=== PATIENT | male | born 1950 | race Asian ===

== ENCOUNTER 2020-07-28 20:55 | Emergency (ER) | payer MEDICARE ==
[~2020-07-28] VITALS: Ht 168.9 cm; Wt 63.6 kg
[2020-07-28] MEDS ORDERED: CARV12.530 PO (21:06)
[2020-07-28] MEDS ORDERED: ROSU20TA73 PO (21:06)
[2020-07-28] MEDS ORDERED: AMLO5TAB66 PO (21:06)
[2020-07-28] MEDS ORDERED: METF-446 PO (21:06)
[2020-07-28] MEDS ORDERED: INSU300I SQ (21:06)
[2020-07-28] MEDS ORDERED: FENO145T26 PO (21:06)
[2020-07-28] MEDS ORDERED: VALS160T31 PO (21:06)
[2020-07-28 23:09] LABS: BASOPHILS % (AUTO) 0.8 % (0.0-2.0); EOSINOPHILS % (AUTO) 6.7 % (1.0-6.0); HEMATOCRIT 43.7 % (41-53); HEMOGLOBIN 14.5 g/dL (13.5-17.5); LYMPHOCYTES # (AUTO) 1.4 K/uL (1.0-4.8); LYMPHOCYTES % (AUTO) 24.8 % (22.0-44.0); MEAN CORPUSCULAR HEMOGLOBIN 28.5 pg (26.0-34.0); MEAN CORPUSCULAR HGB CONC 33.2 G/dL (31.0-37.0); MEAN CORPUSCULAR VOLUME 86 fL (80-100); MONOCYTES # (AUTO) 0.5 K/uL (0.1-1.0); MONOCYTES % (AUTO) 8.6 % (2.0-9.0); NEUTROPHILS # (AUTO) 3.4 K/uL (1.8-7.7); NEUTROPHILS % (AUTO) 59.1 % (40.0-70.0); PLATELET COUNT (AUTO) 329 K/uL (150-450); RED BLOOD CELL COUNT(AUTO) 5.08 MIL/uL (4.50-5.90); RED CELL DISTRIBUTION WIDTH 13.4 % (11.5-14.5)
[2020-07-28 23:17] LABS: INR 0.9 (0.9-1.1)
[2020-07-28 23:22] LABS: CALCIUM, TOTAL 9.6 mg/dL (8.8-10.5); CREATININE 1.29 mg/dL (0.60-1.30); POTASSIUM 4.6 mmol/L (3.5-5.1)
[2020-07-28] MEDS ORDERED: AmLODIPine BESYLATE 5 MG TABLET PO ONE (23:45)
[2020-07-28 23:52] LABS: ALBUMIN 4.8 g/dL (3.4-5.0); BILIRUBIN,TOTAL 0.4 mg/dL (0.1-1.0); TOTAL PROTEIN, SERUM 9.2 g/dL (6.4-8.2)
[2020-07-29 00:18] LABS: APPEARANCE,URINE CLEAR (CLEAR); BILIRUBIN,URINE NEGATIVE (NEGATIVE); GLUCOSE, URINE (UA) >=1000 mg/dL (NEGATIVE); KETONES,URINE NEGATIVE (NEGATIVE); LEUKOCYTE ESTERASE ,URINE NEGATIVE (NEGATIVE); NITRATE,URINE NEGATIVE (NEGATIVE); OCCULT BLOOD,URINE NEGATIVE (NEGATIVE); PROTEIN,URINE TRACE (NEGATIVE)
[2020-07-29 00:20] LABS: BACTERIA,URINE None Seen /HPF (None Seen); RBC,URINE None Seen /HPF (0-2); SQUAMOUS EPITHELIAL CELL,UR None Seen /LPF (None Seen); WBC,URINE None Seen /HPF (0-5)
[2020-07-29 00:29] VITALS: BP 152/72
== END 2020-07-29 00:53 | disposition home or self-care (01) ==
LOC: EMS 20:59
DX: I10 Essential (primary) hypertension (principal); R51.9 Headache, unspecified; E11.9 Type 2 diabetes mellitus without complications; E78.00 Pure hypercholesterolemia, unspecified; Z79.84 Long term (current) use of oral hypoglycemic drugs; Z88.6 Allergy status to analgesic agent
CPT/HCPCS: 70450; 71045; 80053; 81001; 82550; 82962; 83880; 84484; 85025; 85610; 85730; 93005; 99285; 36415-L1; 36415-TC

== ENCOUNTER 2025-01-20 15:58 | Inpatient (IN) | payer MEDICARE ==
[~2025-01-20] VITALS: Ht 167.6 cm; Wt 59.8 kg
[~2025-01-20 15:58] MED LIST: AMLO5TAB66 PO; CARV12.530 PO; EMPA10TA3 PO; FENO145T26 PO; FINE10TA PO; INSU300I SQ; METF-446 PO; ROSU20TA98 PO; VALS160T31 PO
[2025-01-20] MEDS ORDERED: CHOL500043 PO (16:07)
[2025-01-20] MEDS ORDERED: MELA3TAB89 PO (16:07)
[2025-01-20] MEDS ORDERED: ASPI-1450 PO (16:07)
[2025-01-20] MEDS ORDERED: OMEG-287 PO (16:07)
[2025-01-20] MEDS ORDERED: 0.9% SODIUM CHLORIDE 10 ML SYRINGE IVP PRN (16:30)
[2025-01-20 17:16] LABS: COVID AG,FIA SOURCE NASAL SWAB
[2025-01-20 17:30] LABS: PLATELET COUNT (AUTO) 193 K/uL (150-450); RED BLOOD CELL COUNT(AUTO) 4.16 MIL/uL (4.50-5.90); RED CELL DISTRIBUTION WIDTH 15.1 % (11.5-14.5); WHITE BLOOD COUNT (AUTO) 7.1 K/uL (4.5-11.0)
[2025-01-20] MEDS: ACETAMINOPHEN 1000 MG/ISO-OSM 100 ML IV ONE (17:41)
[2025-01-20 17:43] LABS: INFLUENZA TYPE A NEGATIVE FOR TYPE A (NEGATIVE); INFLUENZA TYPE B NEGATIVE FOR TYPE B (NEGATIVE); SARS-COV2 (COVID) ANTIGEN,FIA Negative (Negative)
[2025-01-20 17:43] LABS: ASPARTATE AMINOTRANSFERASE 39 U/L (15-37); CREATINE KINASE, TOTAL ONLY 54 U/L (39-308); TOTAL PROTEIN, SERUM 8.3 g/dL (6.4-8.2)
[2025-01-20 17:46] LABS: LACTIC ACID 1.5 mmol/L (0.4-2.0)
[2025-01-20 17:49] LABS: CALCIUM, TOTAL 9.3 mg/dL (8.8-10.5); CREATININE 2.05 mg/dL (0.60-1.30); GLOMERULAR FILTR. RATE CALC 32 mL/min (>60); GLUCOSE,RANDOM 118 mg/dL (70-110); SODIUM SERUM 135 mmol/L (136-145); TROPONIN I-HIGH SENSITIVITY 49 ng/L (<76); UREA NITROGEN, BLOOD 47 mg/dL (7-18)
[2025-01-20 18:40] LABS: APPEARANCE,URINE CLEAR (CLEAR); GLUCOSE, URINE (UA) >=1000 mg/dL (NEGATIVE); LEUKOCYTE ESTERASE ,URINE NEGATIVE (NEGATIVE); NITRATE,URINE NEGATIVE (NEGATIVE); OCCULT BLOOD,URINE TRACE (NEGATIVE); SPECIFIC GRAVITIY, URINE 1.020 (1.003-1.030)
[2025-01-20] MEDS: PIPERACILLIN SODIUM/TAZOBACTAM 4.5 GM in DEXTROSE 5%-WATER 100 ML IV ONE (18:49)
[2025-01-20 18:59] LABS: SQUAMOUS EPITHELIAL CELL,UR Rare /LPF (None Seen)
[2025-01-20] MEDS ORDERED: PIPERACILLIN/TAZO 3.375 GM/D5W 50 ML IV SCH (22:45)
[2025-01-20] MEDS ORDERED: ONDANSETRON HCL 4 MG/2 ML VIAL IVP PRN (22:45)
[2025-01-20] MEDS: PIPERACILLIN SODIUM/TAZOBACTAM 2.25 GM in DEXTROSE 5%-WATER 50 ML IV SCH (23:47)
[2025-01-20] MEDS: MELATONIN 3 MG TABLET PO SCH (23:47)
[2025-01-21 01:00] VITALS: BP 117/59; PULSE 88; RESP 18; TEMP 97.7; O2SAT 98
[2025-01-21 04:30] VITALS: BP 106/66; PULSE 95; RESP 19; TEMP 99.3; O2SAT 97
[2025-01-21] MEDS ORDERED: SODIUM CHLORIDE 0.9% 250 ML IV ONE (06:11)
[2025-01-21] MEDS: ACETAMINOPHEN 325 MG TABLET PO PRN (06:16)
[2025-01-21 08:43] VITALS: BP 106/57; PULSE 76; RESP 17; TEMP 98.1; O2SAT 96
[2025-01-21] MEDS: VALSARTAN 160 MG TABLET PO SCH (09:00)
[2025-01-21] MEDS: POLYETHYLENE GLYCOL 3350 17 GM PACKET PO SCH (09:00)
[2025-01-21] MEDS: ENOXAPARIN SODIUM 40 MG/0.4 ML PF SYRINGE SQ SCH (09:30)
[2025-01-21] MEDS: OMEGA-3/DHA/EPA/FISH OIL 500 MG CAPSULE PO SCH (09:32)
[2025-01-21] MEDS: ASPIRIN 81 MG CHEWABLE TABLET PO SCH (09:32)
[2025-01-21] MEDS: EMPAGLIFLOZIN 10 MG TABLET PO SCH (09:32)
[2025-01-21] MEDS: ROSUVASTATIN CALCIUM 20 MG TABLET PO SCH (09:35)
[2025-01-21] MEDS: FENOFIBRATE 48 MG TABLET PO SCH (09:35)
[2025-01-21 12:32] VITALS: BP 103/58; PULSE 74; RESP 17; TEMP 98.6; O2SAT 98
[2025-01-21 16:33] VITALS: BP 106/69; PULSE 78; RESP 19; TEMP 97.9; O2SAT 98
[2025-01-21] MEDS: CLOPIDOGREL BISULFATE 75 MG TABLET PO SCH (18:11)
[2025-01-21 19:32] VITALS: BP 123/63; PULSE 81; RESP 19; TEMP 97.5; O2SAT 99
[2025-01-21] MEDS: INSULIN GLARGINE,HUM.REC.ANLOG 100 UNITS/ML SQ SCH (22:02)
[2025-01-22 00:32] VITALS: BP 103/58; PULSE 75; RESP 17; TEMP 97.9; O2SAT 97
[2025-01-22 05:47] VITALS: BP 106/64; PULSE 77; RESP 17; TEMP 97.9; O2SAT 96
[2025-01-22 06:16] LABS: GLUCOMETER DEV NAME(LOC) 5S.2E; GLUCOSE,POINT OF CARE 269 MG/DL (70-110)
[2025-01-22 06:51] LABS: PLATELET COUNT (AUTO) 167 K/uL (150-450); RED BLOOD CELL COUNT(AUTO) 3.62 MIL/uL (4.50-5.90); RED CELL DISTRIBUTION WIDTH 15.0 % (11.5-14.5); WHITE BLOOD COUNT (AUTO) 3.6 K/uL (4.5-11.0)
[2025-01-22 06:54] LABS: CALCIUM, TOTAL 9.1 mg/dL (8.8-10.5); CREATININE 1.89 mg/dL (0.60-1.30); GLOMERULAR FILTR. RATE CALC 35.0 mL/min (>60); GLUCOSE,RANDOM 113.0 mg/dL (70-110); SODIUM SERUM 140.0 mmol/L (136-145); UREA NITROGEN, BLOOD 35.0 mg/dL (7-18)
[2025-01-22 09:13] VITALS: BP 107/61; PULSE 88; RESP 18
[2025-01-22 11:40] LABS: GLUCOMETER DEV NAME(LOC) 5S.1E; GLUCOSE,POINT OF CARE 126 MG/DL (70-110)
[2025-01-22 12:00] VITALS: BP 110/56; PULSE 76; RESP 18; TEMP 98.1; O2SAT 98
[2025-01-22 17:06] VITALS: BP 121/74; PULSE 78; RESP 18; TEMP 98.2; O2SAT 99
[2025-01-22 20:16] VITALS: BP 108/63; PULSE 87; RESP 18; TEMP 97.9; O2SAT 98
[2025-01-22] MEDS: MELATONIN 5 MG TABLET PO SCH (21:49)
[2025-01-23] VITALS (7 sets, daily range): BP systolic 108–150; BP diastolic 60–70; PULSE 66–85; RESP 16–19; TEMP 97.5–98.7; O2SAT 97–100
[2025-01-23 06:50] LABS: PLATELET COUNT (AUTO) 205 K/uL (150-450); RED BLOOD CELL COUNT(AUTO) 3.51 MIL/uL (4.50-5.90); RED CELL DISTRIBUTION WIDTH 14.9 % (11.5-14.5); WHITE BLOOD COUNT (AUTO) 3.2 K/uL (4.5-11.0)
[2025-01-23 07:03] LABS: CALCIUM, TOTAL 9.1 mg/dL (8.8-10.5); CREATININE 1.58 mg/dL (0.60-1.30); GLOMERULAR FILTR. RATE CALC 43.0 mL/min (>60); GLUCOSE,RANDOM 78.0 mg/dL (70-110); SODIUM SERUM 139.0 mmol/L (136-145); UREA NITROGEN, BLOOD 28.0 mg/dL (7-18)
[2025-01-23 07:20] LABS: GLUCOMETER DEV NAME(LOC) 5N.2C; GLUCOSE,POINT OF CARE 261 MG/DL (70-110)
[2025-01-23] MEDS: MELATONIN 5 MG TABLET PO SCH (20:41)
[2025-01-24 05:08] VITALS: BP 137/75; PULSE 73; RESP 17; TEMP 98.2; O2SAT 99
[2025-01-24 07:01] LABS: PLATELET COUNT (AUTO) 218 K/uL (150-450); RED BLOOD CELL COUNT(AUTO) 3.53 MIL/uL (4.50-5.90); RED CELL DISTRIBUTION WIDTH 14.6 % (11.5-14.5); WHITE BLOOD COUNT (AUTO) 2.6 K/uL (4.5-11.0)
[2025-01-24 07:25] LABS: ASPARTATE AMINOTRANSFERASE 37.0 U/L (15-37); CALCIUM, TOTAL 9.0 mg/dL (8.8-10.5); CREATININE 1.63 mg/dL (0.60-1.30); GLOMERULAR FILTR. RATE CALC 42.0 mL/min (>60); GLUCOSE,RANDOM 91.0 mg/dL (70-110); SODIUM SERUM 140.0 mmol/L (136-145); TOTAL PROTEIN, SERUM 7.2 g/dL (6.4-8.2); UREA NITROGEN, BLOOD 28.0 mg/dL (7-18)
[2025-01-24 08:00] VITALS: BP 126/65; PULSE 82; RESP 18; TEMP 97.9; O2SAT 99
[2025-01-24 11:56] VITALS: BP_SYST 138; BP_SYST 99; BP_DIAS 56; BP_DIAS 63; PULSE 83; RESP 18; TEMP 97.7; TEMP 97.9; O2SAT 98
[2025-01-24 12:51] LABS: GLUCOMETER DEV NAME(LOC) 5S.1E; GLUCOSE,POINT OF CARE 238 MG/DL (70-110)
[2025-01-24] MEDS: *CLINICAL-LEVOFLOXACIN ORAL DOSING CLINICAL ONE (13:26)
[2025-01-24] MEDS ORDERED: LEVOFLOXACIN 750 MG/D5% WATER 150 ML IV SCH (14:00)
[2025-01-24] MEDS: LEVOFLOXACIN 750 MG/D5% WATER 150 ML IV SCH (14:37)
[2025-01-24 15:30] VITALS: BP 125/66; PULSE 75; RESP 18; TEMP 98.4; O2SAT 99
[2025-01-24 19:29] VITALS: BP 126/75; PULSE 85; RESP 18; TEMP 98.1; O2SAT 100
[2025-01-25] VITALS: BP 123/63; PULSE 76; RESP 18; TEMP 97.9; O2SAT 99
[2025-01-25 03:01] LABS: GLUCOMETER DEV NAME(LOC) 5S.1E; GLUCOSE,POINT OF CARE 189 MG/DL (70-110)
[2025-01-25 05:44] VITALS: BP 126/74; PULSE 69; RESP 18; TEMP 98.2; O2SAT 97
[2025-01-25 06:58] LABS: PLATELET COUNT (AUTO) 281 K/uL (150-450); RED BLOOD CELL COUNT(AUTO) 3.94 MIL/uL (4.50-5.90); RED CELL DISTRIBUTION WIDTH 14.7 % (11.5-14.5); WHITE BLOOD COUNT (AUTO) 2.4 K/uL (4.5-11.0)
[2025-01-25 07:06] LABS: CALCIUM, TOTAL 9.2 mg/dL (8.8-10.5); CREATININE 1.42 mg/dL (0.60-1.30); GLOMERULAR FILTR. RATE CALC 49.0 mL/min (>60); GLUCOSE,RANDOM 90.0 mg/dL (70-110); SODIUM SERUM 140.0 mmol/L (136-145); UREA NITROGEN, BLOOD 26.0 mg/dL (7-18)
[2025-01-25 07:23] VITALS: BP 141/67; PULSE 75; RESP 18; TEMP 98; O2SAT 98
[2025-01-25 11:08] VITALS: BP 124/66; PULSE 80; RESP 18; TEMP 98.2; O2SAT 97
[2025-01-25 15:47] VITALS: BP 134/73; PULSE 83; RESP 18; TEMP 98.9; O2SAT 100
[2025-01-25 20:29] VITALS: BP 144/79; PULSE 89; RESP 18; TEMP 98.2; O2SAT 96
[2025-01-26] MEDS: ERTAPENEM SODIUM 1 GM in SODIUM CHLORIDE 0.9% 50 ML IV SCH (00:18)
[2025-01-26 00:28] VITALS: BP 130/74; PULSE 79; RESP 18; TEMP 98.2; O2SAT 98
[2025-01-26 04:14] VITALS: BP 130/67; PULSE 70; RESP 19; TEMP 98.1; O2SAT 96
[2025-01-26 06:34] LABS: CALCIUM, TOTAL 8.8 mg/dL (8.8-10.5); CREATININE 1.42 mg/dL (0.60-1.30); GLOMERULAR FILTR. RATE CALC 49.0 mL/min (>60); GLUCOSE,RANDOM 114.0 mg/dL (70-110); SODIUM SERUM 141.0 mmol/L (136-145); UREA NITROGEN, BLOOD 28.0 mg/dL (7-18)
[2025-01-26 06:41] LABS: PLATELET COUNT (AUTO) 249 K/uL (150-450); RED BLOOD CELL COUNT(AUTO) 3.25 MIL/uL (4.50-5.90); RED CELL DISTRIBUTION WIDTH 14.4 % (11.5-14.5); WHITE BLOOD COUNT (AUTO) 2.5 K/uL (4.5-11.0)
[2025-01-26 07:20] VITALS: BP 127/69; PULSE 90; RESP 18; TEMP 97.6; O2SAT 98
[2025-01-26 11:15] VITALS: BP 110/66; PULSE 69; RESP 18; TEMP 97.7; O2SAT 98
[2025-01-26 11:25] LABS: GLUCOMETER DEV NAME(LOC) 5S.1E; GLUCOSE,POINT OF CARE 228 MG/DL (70-110)
[2025-01-26 16:05] VITALS: BP 129/73; PULSE 75; RESP 17; TEMP 98; O2SAT 98
[2025-01-26 20:03] VITALS: BP 152/76; PULSE 85; RESP 18; TEMP 97.3; O2SAT 98
[2025-01-27 00:22] VITALS: BP 125/57; PULSE 71; RESP 18; TEMP 98.2; O2SAT 97
[2025-01-27 04:19] VITALS: BP 128/60; PULSE 72; RESP 18; TEMP 98.1; O2SAT 96
[2025-01-27 06:21] LABS: GLUCOSE,POINT OF CARE 207 MG/DL (70-110)
[2025-01-27 06:38] LABS: PLATELET COUNT (AUTO) 284 K/uL (150-450); RED BLOOD CELL COUNT(AUTO) 3.33 MIL/uL (4.50-5.90); RED CELL DISTRIBUTION WIDTH 14.8 % (11.5-14.5); WHITE BLOOD COUNT (AUTO) 2.6 K/uL (4.5-11.0)
[2025-01-27 07:06] LABS: ASPARTATE AMINOTRANSFERASE 30.0 U/L (15-37); CALCIUM, TOTAL 8.6 mg/dL (8.8-10.5); CREATININE 1.25 mg/dL (0.60-1.30); GLOMERULAR FILTR. RATE CALC 56.0 mL/min (>60); GLUCOSE,RANDOM 80.0 mg/dL (70-110); SODIUM SERUM 143.0 mmol/L (136-145); TOTAL PROTEIN, SERUM 6.6 g/dL (6.4-8.2); UREA NITROGEN, BLOOD 23.0 mg/dL (7-18)
[2025-01-27 08:09] VITALS: BP 120/67; PULSE 78; RESP 18; TEMP 98; O2SAT 96
[2025-01-27] MEDS: CHOLECALCIFEROL (VIT D3) 50,000 UNITS [1,250 MCG] CAPSULE PO SCH (08:31)
[2025-01-27 11:49] VITALS: BP 121/66; PULSE 75; RESP 18; TEMP 98; O2SAT 96
[2025-01-27 17:30] VITALS: BP 121/88; PULSE 77; RESP 17; TEMP 98.2; O2SAT 98
[2025-01-27 20:18] VITALS: BP 130/78; PULSE 87; RESP 18; TEMP 97.7; O2SAT 99
[2025-01-27 20:21] LABS: GLUCOSE,POINT OF CARE 183 MG/DL (70-110)
[2025-01-28] VITALS (8 sets, daily range): BP systolic 107–164; BP diastolic 52–78; PULSE 77–97; RESP 17–18; TEMP 97.5–98.2; O2SAT 97–99
[2025-01-28] MEDS ORDERED: SODIUM CHLORIDE 0.9% 250 ML IV ONE (00:37)
[2025-01-28 08:42] LABS: PLATELET COUNT (AUTO) 349 K/uL (150-450); RED BLOOD CELL COUNT(AUTO) 3.62 MIL/uL (4.50-5.90); RED CELL DISTRIBUTION WIDTH 14.9 % (11.5-14.5); WHITE BLOOD COUNT (AUTO) 3.0 K/uL (4.5-11.0)
[2025-01-28] MEDS: DEXTROSE 5%-0.45% SODIUM CHL 1,000 ML IV ONE (09:00)
[2025-01-28] MEDS ORDERED: IOHEXOL 300 MG/ML 10 ML VIAL ONE (09:33)
[2025-01-28] MEDS: IOHEXOL 300 MG/ML 10 ML VIAL IVP ONE (09:56)
[2025-01-29] MEDS ORDERED: SODIUM CHLORIDE 0.9% 250 ML IV ONE (00:35)
[2025-01-29 01:01] VITALS: BP 113/55; PULSE 70; RESP 18; TEMP 97.3; O2SAT 98
[2025-01-29 01:25] LABS: GLUCOSE,POINT OF CARE 158 MG/DL (70-110)
[2025-01-29 06:09] VITALS: BP 111/52; PULSE 71; RESP 17; TEMP 98.1; O2SAT 98
[2025-01-29 06:54] LABS: PLATELET COUNT (AUTO) 350 K/uL (150-450); RED BLOOD CELL COUNT(AUTO) 3.34 MIL/uL (4.50-5.90); RED CELL DISTRIBUTION WIDTH 15.0 % (11.5-14.5); WHITE BLOOD COUNT (AUTO) 2.5 K/uL (4.5-11.0)
[2025-01-29 07:21] LABS: ASPARTATE AMINOTRANSFERASE 33.0 U/L (15-37); CALCIUM, TOTAL 8.7 mg/dL (8.8-10.5); CHOL/HDL RATIO 2.5 (4.2-7.3); CREATININE 1.19 mg/dL (0.60-1.30); GLOMERULAR FILTR. RATE CALC 60.0 mL/min (>60); GLUCOSE,RANDOM 79.0 mg/dL (70-110); LDL CHOL (CALC.) 29.0 mg/dL (0-130); PHOSPHORUS 3.7 mg/dL (2.5-4.9); SODIUM SERUM 141.0 mmol/L (136-145); TOTAL PROTEIN, SERUM 6.6 g/dL (6.4-8.2); UREA NITROGEN, BLOOD 24.0 mg/dL (7-18)
[2025-01-29 07:59] VITALS: BP 133/75; PULSE 64; RESP 19; TEMP 97.7; O2SAT 97
[2025-01-29 11:43] VITALS: BP 121/61; PULSE 71; RESP 18; TEMP 98.8; O2SAT 97
[2025-01-29 16:00] VITALS: BP 136/71; PULSE 79; RESP 19; TEMP 98.1; O2SAT 99
[2025-01-29 20:32] VITALS: BP 119/66; PULSE 82; RESP 19; TEMP 98.8; O2SAT 100
[2025-01-30] VITALS: BP 100/58; PULSE 69; RESP 18; TEMP 98.8; O2SAT 100
[2025-01-30 06:19] VITALS: BP 116/67; PULSE 67; RESP 18; TEMP 97.8; O2SAT 100
[2025-01-30 07:08] LABS: PLATELET COUNT (AUTO) 332 K/uL (150-450); RED BLOOD CELL COUNT(AUTO) 3.36 MIL/uL (4.50-5.90); RED CELL DISTRIBUTION WIDTH 14.8 % (11.5-14.5); WHITE BLOOD COUNT (AUTO) 2.7 K/uL (4.5-11.0)
[2025-01-30 07:51] LABS: GLUCOMETER DEV NAME(LOC) 5S.1E; GLUCOSE,POINT OF CARE 211 MG/DL (70-110)
[2025-01-30] MEDS: LACTULOSE 20 GM/30 ML SOLUTION UDCUP PO PRN (08:16)
[2025-01-30 10:08] LABS: CALCIUM, TOTAL 8.7 mg/dL (8.8-10.5); CREATININE 1.41 mg/dL (0.60-1.30); GLOMERULAR FILTR. RATE CALC 49.0 mL/min (>60); GLUCOSE,RANDOM 84.0 mg/dL (70-110); SODIUM SERUM 141.0 mmol/L (136-145); UREA NITROGEN, BLOOD 30.0 mg/dL (7-18)
[2025-01-30 12:50] VITALS: BP 93/56; PULSE 78; RESP 18; TEMP 98.5; O2SAT 98
[2025-01-30 16:50] VITALS: BP 133/66; PULSE 76; RESP 15; TEMP 98.1; O2SAT 97
[2025-01-30 20:00] VITALS: BP 128/70; PULSE 80; RESP 18; TEMP 97.9; O2SAT 98
[2025-01-30 22:06] LABS: GLUCOMETER DEV NAME(LOC) 5S.1E; GLUCOSE,POINT OF CARE 150 MG/DL (70-110)
[2025-01-31] VITALS: BP 107/53; PULSE 70; RESP 18; TEMP 97.9; O2SAT 97
[2025-01-31 04:00] VITALS: BP 107/60; PULSE 78; RESP 18; TEMP 97.5; O2SAT 100
[2025-01-31 06:29] LABS: PLATELET COUNT (AUTO) 327 K/uL (150-450); RED BLOOD CELL COUNT(AUTO) 3.57 MIL/uL (4.50-5.90); RED CELL DISTRIBUTION WIDTH 14.8 % (11.5-14.5); WHITE BLOOD COUNT (AUTO) 3.0 K/uL (4.5-11.0)
[2025-01-31 06:45] LABS: CALCIUM, TOTAL 8.6 mg/dL (8.8-10.5); CREATININE 1.19 mg/dL (0.60-1.30); GLOMERULAR FILTR. RATE CALC 60.0 mL/min (>60); GLUCOSE,RANDOM 86.0 mg/dL (70-110); SODIUM SERUM 141.0 mmol/L (136-145); UREA NITROGEN, BLOOD 27.0 mg/dL (7-18)
[2025-01-31 08:00] VITALS: BP 110/65; PULSE 77; RESP 17; TEMP 97.9; O2SAT 99
[2025-01-31 12:31] LABS: GLUCOMETER DEV NAME(LOC) 5S.1E; GLUCOSE,POINT OF CARE 120 MG/DL (70-110)
[2025-01-31 15:57] VITALS: BP 123/68; PULSE 75; RESP 18; TEMP 98.2; O2SAT 99
[2025-01-31 20:06] VITALS: BP 110/67; PULSE 83; RESP 18; TEMP 97.7; O2SAT 98
[2025-02-01 06:29] VITALS: BP 99/66; PULSE 70; RESP 18; TEMP 97.7; O2SAT 98
[2025-02-01 08:04] VITALS: BP 91/49; PULSE 70; RESP 18; TEMP 97.9; O2SAT 99
[2025-02-01 08:16] LABS: GLUCOSE,POINT OF CARE 166 MG/DL (70-110)
[2025-02-01] MEDS: DOCUSATE SODIUM 250 MG CAPSULE PO SCH (16:22)
[2025-02-01 17:03] VITALS: BP 116/64; PULSE 80; RESP 19; TEMP 97.9; O2SAT 98
[2025-02-01 20:00] VITALS: BP 114/52; PULSE 86; RESP 18; TEMP 97.3; O2SAT 99
[2025-02-01 21:11] LABS: GLUCOSE,POINT OF CARE 172 MG/DL (70-110)
[2025-02-02 06:21] VITALS: BP 112/59; PULSE 71; RESP 18; TEMP 97.9; O2SAT 97
[2025-02-02] MEDS ORDERED: LEVO750T68 PO (14:06)
== END 2025-02-02 16:10 | disposition home health service (06) | DRG 919 ==
LOC: EMS 15:58 → EDH 23:33 → 5N 01-21 01:42 → 6S 01-31 16:44
PROVIDERS: ADMIT Family Medicine; ATTEND Family Medicine
PROC: 05HC33Z Insertion of Infusion Device into Left Basilic Vein, Percutaneous Approach (ICD-10-PCS; 2025-01-27)
PROC: B54NZZA Ultrasonography of Left Upper Extremity Veins, Guidance (ICD-10-PCS; 2025-01-27)
PROC: BF131ZZ Fluoroscopy of Gallbladder and Bile Ducts using Low Osmolar Contrast (ICD-10-PCS; principal; 2025-01-28)
PROC: 0FJ4XZZ Inspection of Gallbladder, External Approach (ICD-10-PCS; 2025-01-28)
DX: T85.79XA Infection and inflammatory reaction due to other internal prosthetic devices, implants and grafts, initial encounter (principal); A41.51 Sepsis due to Escherichia coli [E. coli]; N17.0 Acute kidney failure with tubular necrosis; E11.9 Type 2 diabetes mellitus without complications; I10 Essential (primary) hypertension; K59.00 Constipation, unspecified; E78.5 Hyperlipidemia, unspecified; Y83.8 Other surgical procedures as the cause of abnormal reaction of the patient, or of later complication, without mention of misadventure at the time of the procedure; I25.10 Atherosclerotic heart disease of native coronary artery without angina pectoris; I25.2 Old myocardial infarction; K80.20 Calculus of gallbladder without cholecystitis without obstruction; Z20.822 Contact with and (suspected) exposure to COVID-19; E78.00 Pure hypercholesterolemia, unspecified; Z88.6 Allergy status to analgesic agent; Z95.5 Presence of coronary angioplasty implant and graft; Z79.899 Other long term (current) drug therapy; Y92.89 Other specified places as the place of occurrence of the external cause
CPT/HCPCS: 36245; 36569; 71045; 74176; 76000; 76937; 80048; 80053; 80061; 80076; 81001; 82550; 82962; 83036; 83605; 83735; 83880; 84100; 84145; 84443; 84484; 85025; 85610; 87040; 87070; 87075; 87077; 87081; 87186; 87205; 87804; 93005; 93306; 99291; G0378; J0131; J1335; J1650; J1815; J1956; J2543; J7050; J7060; Q9967; 36415-L1; 36415-TC